=== PATIENT | male | born 1935 | race Caucasian/White ===

== ENCOUNTER 2017-09-18 15:58 | Observation (INO) | payer MEDICARE ==
[~2017-09-18] VITALS: Ht 177.8 cm; Wt 92.7 kg
[~2017-09-18 15:58] MED LIST: ASPI81TA82 PO; GABA300C3 PO; GLIM4TAB PO; GLUCTAB PO; LANTUSP SQ; MOTR200T PO; NOVOLOGP2 SQ; SIMV80TA OR; TRAM50TA PO
[2017-09-18 16:02] VITALS: BP 156/72; PULSE 96; RESP 22; TEMP 98.2; O2SAT 93
--- NOTE | 2017-09-18 17:00 | PD ---
HPI Chief Complaint: Respiratory Distress Time Seen by Provider: 16:59 Travel History International Travel<30 days: No Contact w/Intl Traveler<30days: No Traveled to known affect area: No History of Present Illness HPI 82 YO M with PMH of DM, COPD presents to the ED for evaluation of "a few days" history of worsening shortness of breath and wheezing. Patient endorses chronic nonproductive cough, no worse today. He denies fever, chills, nausea, vomiting, chest pain, palpitations, lower extremity edema. He was seen at the [facility] outpatient clinic yesterday, given a few duo nebs and prescribed azithromycin. He did receive this years flu vaccine. Denies sick contacts. He is not oxygen dependent at home. He does not have a nebulizer at home. He does use a rescue inhaler when necessary. He is followed by Dr. Portillo. [facility] Past Medical History Cancer: No High Cholesterol: Yes Diabetes: Yes Diminished Hearing: No Hepatitis: No Hiatal Hernia: No Thyroid Disease: No Past Surgical History Oral Surgery: Yes (T & A) Other Surgery: Yes (NASAL POLYPS, COLON POLYPS) Social History Alcohol Use: No Tobacco Use: Yes (08/26 PPD) Substance Use: No Allergies-Medications (Allergen,Severity, Reaction): Coded Allergies: Penicillins (Verified Allergy, Unknown, rash, 09/18/17) Reported Meds & Prescriptions Reported Meds & Active Scripts Active Reported Triamcinolone Topical (Triamcinolone Acetonide) 0.1 % Oint 1 Applic TOPICAL BID Ventolin Hfa 18 GM Inh (Albuterol Sulfate) 90 Mcg/Act Aer 2 Puff INH Q8HR Zocor (Simvastatin) 80 Mg Tab 80 Mg PO HS Novolog Inj (Insulin Aspart) 1,000 Unit/10 Ml Vial 15 Units SQ IN THE AFTERNOON inject 15 units daily in the afternoon Novolog Inj (Insulin Aspart) 1,000 Unit/10 Ml Vial 25 Units SQ BID Inject 25 units in the morning and in the evening Metformin ER (Metformin HCl) 500 Mg Jackelin 1,000 Mg PO BID Lantus Inj (Insulin Glargine) 1,000 Unit/10 Ml Vial 65 Units SQ HS Glimepiride 4 Mg Tab 8 Mg PO DAILY Take with breakfast or first main meal Aspirin Adult Low Strength (Aspirin) 81 Mg Tabdr 81 Mg PO DAILY Xanax (Alprazolam) 0.25 Mg Tab 0.25 Mg PO DAILY PRN Zithromax Z-Jose (Azithromycin) 250 Mg Dspk 250 Mg PO DIRECTED 500 MG (2 tabs) day 1, then 1 tab days 2-5. Review of Systems Except as stated in HPI: all other systems reviewed are Neg Physical Exam Narrative GENERAL: Well-nourished, well-developed white male in no acute distress. SKIN: Focused skin assessment warm/dry. HEAD: Normocephalic. EYES: No scleral icterus. No injection or drainage. NECK: Supple, trachea midline. No JVD or lymphadenopathy. CARDIOVASCULAR: Regular rate and rhythm without murmurs, gallops, or rubs. RESPIRATORY: Breath sounds tight with end expiratory wheezing bilaterally. No crackles. No rales. No accessory muscle use. GASTROINTESTINAL: Abdomen soft, non-tender, nondistended. MUSCULOSKELETAL: No cyanosis, or edema. BACK: Nontender without obvious deformity. No CVA tenderness. Data Data Last Documented VS Vital Signs Date Time Temp Pulse Resp B/P (MAP) Pulse Ox O2 Delivery O2 Flow Rate FiO2 09/18/17 19:07 107 18 Room Air 09/18/17 19:06 97/53 (68) 94 09/18/17 16:02 98.2 Orders Orders Complete Blood Count With Diff (09/18/17 16:05) Comprehensive Metabolic Panel (09/18/17 16:05) B-Type Natriuretic Peptide (09/18/17 16:05) Act Partial Throm Time (Ptt) (09/18/17 16:05) Prothrombin Time / Inr (Pt) (09/18/17 16:05) Magnesium (Mg) (09/18/17 16:05) Ckmb (Isoenzyme) Profile (09/18/17 16:05) Troponin I (09/18/17 16:05) Electrocardiogram (09/18/17 16:05) Chest, Pa & Lat (09/18/17 16:05) Iv Access Insert/Monitor (09/18/17 17:19) Ecg Monitoring (09/18/17 17:19) Oximetry (09/18/17 17:19) Methylprednisolone So Succ Inj (Solumedr (09/18/17 17:30) Albuterol-Ipratropium Neb (Duoneb Neb) (09/18/17 17:30) Diet Diabetic (09/18/17 Dinner) Insulin Aspart Inj (Novolog Inj) (09/18/17 19:30) Azithromycin (Zithromax) (09/18/17 19:45) Admit Order (Ed Use Only) (09/18/17 19:36) Labs Laboratory Tests Test 09/18/17 17:40 White Blood Count 5.9 TH/MM3 Red Blood Count 5.10 MIL/MM3 Hemoglobin 14.5 GM/DL Hematocrit 43.8 % Mean Corpuscular Volume 86.0 FL Mean Corpuscular Hemoglobin 28.5 PG Mean Corpuscular Hemoglobin Concent 33.1 % Red Cell Distribution Width 14.3 % Platelet Count 278 TH/MM3 Mean Platelet Volume 8.0 FL Neutrophils (%) (Auto) 43.8 % Lymphocytes (%) (Auto) 33.5 % Monocytes (%) (Auto) 16.6 % Eosinophils (%) (Auto) 5.3 % Basophils (%) (Auto) 0.8 % Neutrophils # (Auto) 2.6 TH/MM3 Lymphocytes # (Auto) 2.0 TH/MM3 Monocytes # (Auto) 1.0 TH/MM3 Eosinophils # (Auto) 0.3 TH/MM3 Basophils # (Auto) 0.0 TH/MM3 CBC Comment DIFF FINAL Differential Comment Prothrombin Time 10.7 SEC Prothromb Time International Ratio 1.1 RATIO Activated Partial Thromboplast Time 27.6 SEC Blood Urea Nitrogen 16 MG/DL Creatinine 0.96 MG/DL Random Glucose 241 MG/DL Total Protein 7.9 GM/DL Albumin 3.6 GM/DL Calcium Level 8.7 MG/DL Magnesium Level 2.0 MG/DL Alkaline Phosphatase 97 U/L Aspartate Amino Transf (AST/SGOT) 14 U/L Alanine Aminotransferase (ALT/SGPT) 20 U/L Total Bilirubin 0.7 MG/DL Sodium Level 138 MEQ/L Potassium Level 4.6 MEQ/L Chloride Level 102 MEQ/L Carbon Dioxide Level 27.6 MEQ/L Anion Gap 8 MEQ/L Estimat Glomerular Filtration Rate 75 ML/MIN Total Creatine Kinase 80 U/L Troponin I LESS THAN 0.02 NG/ML MDM Medical Decision Making Medical Screen Exam Complete: Yes Emergency Medical Condition: Yes Differential Diagnosis COPD exacerbation versus pneumonia versus upper respiratory infection versus other Narrative Course 82 YO M with PMH of DM, COPD presents to the ED for evaluation of "a few days" history of worsening shortness of breath and wheezing. Patient endorses chronic nonproductive cough, no worse today. He denies fever, chills, nausea, vomiting, chest pain, palpitations, lower extremity edema. He was seen at the [facility] outpatient clinic yesterday, given a few duo nebs and prescribed azithromycin. Used a rescue inhaler at home with no improvement of symptoms. Since afebrile, pulse 96, respiratory rate 22, O2 sats 93% on room air on presentation. On exam this is an obese white male in no acute distress. Breath sounds are tight, wheezy, no crackles, no Rales, no accessory muscle use. IV was established. Patient was administered 60 mg Solu-Medrol, DuoNeb 3. CBC: WBC 5.9. Hemoglobin 14.5. INR: 1.1. CMP: BUN 16, creatinine 0.96. Random glucose 241. EKG: Rate 106, sinus tachycardia DE interval 168, QRS 117, QTC 417. Normal axis. Q waves in 2 and aVF. No previous EKG available for comparison. Reviewed by Dr. White Cardiac enzymes negative 1. On recheck patient is lying in bed, tachycardic at a rate of 113. I suspect this is secondary to do nebs. However, O2 sats are 89-91 while at rest. Respiratory rate 25+, positive accessory muscle use. Lung sounds are not improved. Given his continued hypoxia will admit for COPD exacerbation. I discussed this plan with the patient is agreeable. Patient was administered 250 mg azithromycin, nighttime dose of subcutaneous NovoLog and provided with a meal. I spoke with Dr. Verma who agrees to accept the patient to the medicine service. Please see medicine notes for disposition. Susana Hutchison Sep 18, 2017 17:00
[2017-09-18] MEDS ORDERED: VENTAER INH (17:19)
[2017-09-18] MEDS ORDERED: METF500T4 PO (17:19)
[2017-09-18] MEDS ORDERED: NOVOLOGP2 SQ ×2 (17:19)
[2017-09-18] MEDS ORDERED: LANTUS2P SQ (17:19)
[2017-09-18] MEDS ORDERED: ZITHTAB PO (17:19)
[2017-09-18] MEDS ORDERED: ASPI81TA16 PO (17:19)
[2017-09-18] MEDS ORDERED: TRIAM.1%T TOPICAL (17:19)
[2017-09-18] MEDS ORDERED: ZOCO80TA PO (17:19)
[2017-09-18] MEDS ORDERED: ALPR.25 PO (17:19)
[2017-09-18] MEDS ORDERED: GLIM4TAB PO (17:19)
--- NOTE | 2017-09-18 17:21 | RADRPT ---
EXAM DATE/TIME: 09/18/2017 16:22 [place] COMPARISON: No previous studies available for comparison. INDICATIONS : Short of breath. MEDICAL HISTORY : Congestive heart failure. SURGICAL HISTORY : unknown ENCOUNTER: Initial ACUITY: 4 - 6 months PAIN SCORE: 0/10 LOCATION: Bilateral chest FINDINGS: PA and lateral views of the chest demonstrate the lungs to be symmetrically aerated without evidence of mass, infiltrate or effusion. Minimal basilar scarring. The cardiomediastinal contours are unremar kable. Osseous structures are intact. CONCLUSION: 1. Minimal basilar scarring. No effusion. No pneumothorax. Reuben Kulkarni MD on September 18, 2017 at 17:18 Board Certified Radiologist. This report was verified electronically.
[2017-09-18] MEDS ORDERED: methylPREDNISolone SOD SUCC 125 MG/2 ML VIAL IV PUSH ONE (17:30)
[2017-09-18 17:41] VITALS: RESP 20; O2SAT 96
[2017-09-18] MEDS: RESP: ALBUTEROL 2.5 MG/IPRATROPIUM 0.5 MG NEB (SCH) INH ×2 (17:47→17:48)
[2017-09-18 18:27] LABS: AUTOMATED NEUTROPHIL # 2.6 TH/MM3 (1.8-7.7); BASOPHIL % 0.8 % (0.0-2.0); EOSINOPHIL # 0.3 TH/MM3 (0-0.4); EOSINOPHIL % 5.3 % (0.0-4.0); HEMATOCRIT 43.8 % (39.0-51.0); HEMOGLOBIN 14.5 GM/DL (13.0-17.0); LYMPH % 33.5 % (9.0-44.0); MEAN CORPUSCULAR HEMOGLOBIN 28.5 PG (27.0-34.0); MEAN CORPUSCULAR HGB CONC 33.1 % (32.0-36.0); MONO % 16.6 % (0.0-8.0); NEUT % 43.8 % (16.0-70.0); PLATELET COUNT 278 TH/MM3 (150-450); RED CELL DISTRIBUTION WIDTH 14.3 % (11.6-17.2); WHITE BLOOD COUNT 5.9 TH/MM3 (4.0-11.0)
[2017-09-18 18:35] LABS: INTERNATIONAL NORMALIZED RATIO 1.1 RATIO; PROTHROMBIN TIME - PATIENT 10.7 SEC (9.8-11.6)
[2017-09-18 18:41] LABS: ALBUMIN 3.6 GM/DL (3.4-5.0); ALT (GPT) 20 U/L (12-78); AST (GOT) 14 U/L (15-37); BICARBONATE 27.6 MEQ/L (21.0-32.0); BLOOD UREA NITROGEN 16 MG/DL (7-18); CALCIUM 8.7 MG/DL (8.5-10.1); CHLORIDE 102 MEQ/L (98-107); CREATININE 0.96 MG/DL (0.60-1.30); GLOMERULAR FILTRATION RATE 75 ML/MIN (>89); GLUCOSE,RANDOM 241 MG/DL (74-106); SODIUM (NA) 138 MEQ/L (136-145)
[2017-09-18 18:45] LABS: ALKALINE PHOSPHATASE 97 U/L (45-117); TOTAL BILIRUBIN ADULT 0.7 MG/DL (0.2-1.0); TOTAL PROTEIN 7.9 GM/DL (6.4-8.2); TROPONIN I LESS THAN 0.02 NG/ML (0.02-0.05)
[2017-09-18 19:06] VITALS: BP 97/53; PULSE 107; O2SAT 94
[2017-09-18] MEDS ORDERED: INSULIN ASPART 1,000 UNITS/10 ML VIAL SQ ONE ×2 (19:30)
[2017-09-18] MEDS ORDERED: AZITHROMYCIN 250 MG TAB PO ONE (19:45)
[2017-09-18] MEDS ORDERED: ALPRAZolam 0.25 MG TAB PO PRN (20:15)
[2017-09-18] MEDS ORDERED: ACETAMINOPHEN 325 MG TAB PO PRN (20:30)
[2017-09-18] MEDS ORDERED: MAGNESIUM HYDROXIDE SUSP 30 ML CUP PO PRN (20:30)
[2017-09-18] MEDS ORDERED: ONDANSETRON HCL 4 MG/2 ML VIAL IVP PRN (20:30)
[2017-09-18] MEDS ORDERED: SENNOSIDES 8.6 MG TAB PO PRN (20:30)
[2017-09-18] MEDS ORDERED: NALOXONE HCL 0.4 MG/ML AMP IV PUSH PRN (20:30)
[2017-09-18] MEDS ORDERED: SODIUM CHLORIDE 0.9% FLUSH 10 ML FLUSH IV FLUSH PRN (20:30)
[2017-09-18] MEDS ORDERED: LACTULOSE SYRUP 20 GM/30 ML CUP PO PRN (20:30)
[2017-09-18] MEDS ORDERED: BISACODYL 10 MG SUPP RECTAL PRN (20:30)
--- NOTE | 2017-09-18 20:42 | HHI.HP ---
HPI Service [facility] Hospitalists Primary Care Physician Jose Portillo MD Admission Diagnosis COPD exacerbation Chief Complaint: increasing shortness of breath today Travel History International Travel<30 Days: No Contact w/Intl Traveler <30 Da: No Traveled to Known Affected Are: No History of Present Illness 82 YO M with PMH of DM, COPD presents to the ED for evaluation of "a few days" history of worsening shortness of breath and wheezing. Patient endorses chronic nonproductive cough, no worse today. He denies fever, chills, nausea, vomiting, chest pain, palpitations, lower extremity edema. He was seen at the [facility] outpatient clinic yesterday, given a few duo nebs and prescribed azithromycin. He did receive this years flu vaccine. Denies sick contacts. He is not oxygen dependent at home. He does not have a nebulizer at home. He does use a rescue inhaler when necessary . Despite several treatments in er continued wheezing and was hypoxic will admit for continued treatment. Review of Systems Respiratory: COMPLAINS OF: Cough, Shortness of breath Past Family Social History Past Medical History dm ,hyperlipidemia Past Surgical History t and a nasal surgery Reported Medications Triamcinolone Topical (Triamcinolone Acetonide) 0.1 % Oint 1 Applic TOPICAL BID Ventolin Hfa 18 GM Inh (Albuterol Sulfate) 90 Mcg/Act Aer 2 Puff INH Q8HR Zocor (Simvastatin) 80 Mg Tab 80 Mg PO HS Novolog Inj (Insulin Aspart) 1,000 Unit/10 Ml Vial 15 Units SQ IN THE AFTERNOON inject 15 units daily in the afternoon Novolog Inj (Insulin Aspart) 1,000 Unit/10 Ml Vial 25 Units SQ BID Inject 25 units in the morning and in the evening Metformin ER (Metformin HCl) 500 Mg Jackelin 1,000 Mg PO BID Lantus Inj (Insulin Glargine) 1,000 Unit/10 Ml Vial 65 Units SQ HS Glimepiride 4 Mg Tab 8 Mg PO DAILY Take with breakfast or first main meal Aspirin Adult Low Strength (Aspirin) 81 Mg Tabdr 81 Mg PO DAILY Xanax (Alprazolam) 0.25 Mg Tab 0.25 Mg PO DAILY PRN Zithromax Z-Jose (Azithromycin) 250 Mg Dspk 250 Mg PO DIRECTED 500 MG (2 tabs) day 1, then 1 tab days 2-5. Allergies: Coded Allergies: Penicillins (Verified Allergy, Unknown, rash, 09/18/17) Social History NS,ND Physical Exam Vital Signs Vital Signs Date Time Temp Pulse Resp B/P (MAP) Pulse Ox O2 Delivery O2 Flow Rate FiO2 09/18/17 19:07 107 18 Room Air 09/18/17 19:06 107 97/53 (68) 94 Room Air 09/18/17 17:41 20 96 Room Air 09/18/17 17:05 88 22 95 Room Air 09/18/17 16:02 98.2 96 22 156/72 (100) 93 Physical Exam GENERAL: This is a well-nourished, well-developed patient, in no apparent distress. SKIN: No rashes, ecchymoses or lesions. Cool and dry. HEAD: Atraumatic. Normocephalic. No temporal or scalp tenderness. EYES: Pupils equal round and reactive. Extraocular motions intact. No scleral icterus. No injection or drainage. ENT: Nose without bleeding, purulent drainage or septal hematoma. Throat without erythema, tonsillar hypertrophy or exudate. Uvula midline. Airway patent. NECK: Trachea midline. No JVD or lymphadenopathy. Supple, nontender, no meningeal signs. CARDIOVASCULAR: Regular rate and rhythm without murmurs, gallops, or rubs. RESPIRATORY: Decrease breath sounds with bilateral rhonchi GASTROINTESTINAL: Abdomen soft, non-tender, nondistended. No hepato-splenomegaly , or palpable masses. No guarding. MUSCULOSKELETAL: Extremities without clubbing, cyanosis, or edema. No joint tenderness, effusion, or edema noted. No calf tenderness. Negative Homans sign bilaterally. NEUROLOGICAL: Awake and alert. Cranial nerves II through XII intact. Motor and sensory grossly within normal limits. Five out of 5 muscle strength in all muscle groups. Normal speech. Laboratory Laboratory Tests Test 09/18/17 17:40 White Blood Count 5.9 Red Blood Count 5.10 Hemoglobin 14.5 Hematocrit 43.8 Mean Corpuscular Volume 86.0 Mean Corpuscular Hemoglobin 28.5 Mean Corpuscular Hemoglobin Concent 33.1 Red Cell Distribution Width 14.3 Platelet Count 278 Mean Platelet Volume 8.0 Neutrophils (%) (Auto) 43.8 Lymphocytes (%) (Auto) 33.5 Monocytes (%) (Auto) 16.6 Eosinophils (%) (Auto) 5.3 Basophils (%) (Auto) 0.8 Neutrophils # (Auto) 2.6 Lymphocytes # (Auto) 2.0 Monocytes # (Auto) 1.0 Eosinophils # (Auto) 0.3 Basophils # (Auto) 0.0 CBC Comment DIFF FINAL Differential Comment Prothrombin Time 10.7 Prothromb Time International Ratio 1.1 Activated Partial Thromboplast Time 27.6 Blood Urea Nitrogen 16 Creatinine 0.96 Random Glucose 241 Total Protein 7.9 Albumin 3.6 Calcium Level 8.7 Magnesium Level 2.0 Alkaline Phosphatase 97 Aspartate Amino Transf (AST/SGOT) 14 Alanine Aminotransferase (ALT/SGPT) 20 Total Bilirubin 0.7 Sodium Level 138 Potassium Level 4.6 Chloride Level 102 Carbon Dioxide Level 27.6 Anion Gap 8 Estimat Glomerular Filtration Rate 75 Total Creatine Kinase 80 Troponin I LESS THAN 0.02 Result Diagram: 09/18/170 09/18/17 1740 Imaging Last 24 hours Impressions Chest X-Ray 09/18/17 1605 Signed Impressions: Service Date/Time: Monday, September 18, 2017 16:22 - CONCLUSION: 1. Minimal basilar scarring. No effusion. No pneumothorax. Reuben Kulkarni MD Course in er received solumedrol nebulizer Caprini VTE Risk Assessment Caprini VTE Risk Assessment: Mod/High Risk (score >= 2) Caprini Risk Assessment Model Point Value = 1 Point Value = 2 Point Value = 3 Point Value = 5 Age 41-60 Minor surgery BMI > 25 kg/m2 Swollen legs Varicose veins or History of unexplained or recurrent spontaneous Oral contraceptives or hormone replacement Sepsis (< 1 month) Serious lung disease, including pneumonia (< 1 month) Abnormal pulmonary function Acute myocardial infarction Congestive heart failure (< 1 month) History of inflammatory bowel disease Medical patient at bed rest Age 61-74 Arthroscopic surgery Major open surgery (> 45 min) Laparoscopic surgery (> 45 min) Malignancy Confined to bed (> 72 hours) Immobilizing plaster cast Central venous access Age >= 75 History of VTE Family history of VTE Factor V Leiden Prothrombin 68302P Lupus anticoagulant Anticardiolipin antibodies Elevated serum homocysteine Heparin-induced thrombocytopenia Other congenital or acquired thrombophilia Stroke (< 1 month) Elective arthroplasty Hip, pelvis, or leg fracture Acute spinal cord injury (< 1 month) Prophylaxis Regimen Total Risk Factor Score Risk Level Prophylaxis Regimen 0-1 Low Early ambulation 2 Moderate Order ONE of the following: *Sequential Compression Device (SCD) *Heparin 5000 units SQ BID 3-4 Higher Order ONE of the following medications: *Heparin 5000 units SQ TID *Enoxaparin/Lovenox 40 mg SQ daily (WT < 150 kg, CrCl > 30 mL/min) *Enoxaparin/Lovenox 30 mg SQ daily (WT < 150 kg, CrCl > 10-29 mL/min) *Enoxaparin/Lovenox 30 mg SQ BID (WT < 150 kg, CrCl > 30 mL/min) AND/OR *Sequential Compression Device (SCD) 5 or more Highest Order ONE of the following medications: *Heparin 5000 units SQ TID (Preferred with Epidurals) *Enoxaparin/Lovenox 40 mg SQ daily (WT < 150 kg, CrCl > 30 mL/min) *Enoxaparin/Lovenox 30 mg SQ daily (WT < 150 kg, CrCl > 10-29 mL/min) *Enoxaparin/Lovenox 30 mg SQ BID (WT < 150 kg, CrCl > 30 mL/min) AND *Sequential Compression Device (SCD) Assessment and Plan Problem List: (1) COPD exacerbation ICD Codes: J44.1 - Chronic obstructive pulmonary disease with (acute) exacerbation Plan: duonebulizer solumedrol continue zithromax po (2) Hypoxia ICD Codes: R09.02 - Hypoxemia Status: Acute Plan: continue oxygen may need oxygen walk test to see if qualifies (3) Diabetes ICD Codes: E11.9 - Type 2 diabetes mellitus without complications Status: Chronic Plan: on insulin and po medications accucheck patient takes insulin bid and hs will continue Assessment and Plan further plan as case develops Code Status full Discussed Condition With patient Jose Portillo MD Sep 18, 2017 20:42
[2017-09-18] MEDS ORDERED: BENZONATATE 100 MG CAP PO PRN (21:00)
[2017-09-18] MEDS: INSULIN ASPART 1,000 UNITS/10 ML VIAL SQ SCH (21:34)
[2017-09-18] MEDS: INSULIN DETEMIR 100 UNITS/ML VIAL SQ SCH (21:35)
[2017-09-18] MEDS: SODIUM CHLORIDE 0.9% FLUSH 10 ML FLUSH IV FLUSH SCH (21:35)
[2017-09-18] MEDS: PRAVASTATIN SOD 80 MG TAB PO SCH (21:35)
[2017-09-18] MEDS: DOCUSATE SODIUM 50 MG/SENNA 8.6 MG TAB PO SCH (21:35)
[2017-09-18] MEDS: methylPREDNISolone SOD SUCC 125 MG/2 ML VIAL IV PUSH SCH (21:36)
[2017-09-18] MEDS: metFORMIN HCL 500 MG TAB PO SCH (21:36)
[2017-09-18] MEDS ORDERED: ALBUTEROL SULFATE 90 MCG/ACT HFA 8 GM INHALER INH PRN (22:00)
--- NOTE | 2017-09-18 22:22 | EKG ---
Date Performed: 09/18/2017 Time Performed: 19:40:30 PTAGE: 82 years EKG: SINUS TACHYCARDIA PROBABLE INFERIOR MYOCARDIAL INFARCTION PROBABLE ANTEROLATERAL MYOCARDIAL INFARCTION ABNORMAL ECG PREVIOUS TRACING : 11/23/1998 11.41 DOCTOR: Ro Parmar Interpretating Date/Time 09/18/2017 22:21:49
[2017-09-18] MEDS ORDERED: RESP: ALBUTEROL 2.5 MG/IPRATROPIUM 0.5 MG NEB (SCH) ONE (22:29)
[2017-09-18 22:30] VITALS: O2SAT 91
[2017-09-19] VITALS (8 sets, daily range): BP systolic 119–139; BP diastolic 58–62; PULSE 89–105; RESP 12–24; TEMP 97.6–98.2; O2SAT 91–95
[2017-09-19 06:24] LABS: BICARBONATE 23.1 MEQ/L (21.0-32.0); CALCIUM 8.6 MG/DL (8.5-10.1); CREATININE 1.21 MG/DL (0.60-1.30)
[2017-09-19] MEDS: RESP: ALBUTEROL 2.5 MG/IPRATROPIUM 0.5 MG NEB (SCH) NEB ×3 (07:24→20:31)
[2017-09-19] MEDS: SODIUM CHLORIDE 0.9% FLUSH 10 ML FLUSH IV FLUSH SCH ×2 (08:17→21:13)
[2017-09-19] MEDS: AZITHROMYCIN 250 MG TAB PO SCH (08:18)
[2017-09-19] MEDS: ASPIRIN EC 81 MG TABEC PO SCH (08:18)
[2017-09-19] MEDS: metFORMIN HCL 500 MG TAB PO SCH ×2 (08:18→18:27)
[2017-09-19] MEDS: DOCUSATE SODIUM 50 MG/SENNA 8.6 MG TAB PO SCH ×2 (08:18→21:14)
[2017-09-19] MEDS: methylPREDNISolone SOD SUCC 125 MG/2 ML VIAL IV PUSH SCH ×2 (08:18→21:14)
[2017-09-19] MEDS: INSULIN ASPART 1,000 UNITS/10 ML VIAL SQ SCH ×2 (09:26→21:16)
[2017-09-19] MEDS: GLIMEPIRIDE 4 MG TAB PO SCH (09:26)
[2017-09-19] MEDS ORDERED: ALPRAZolam 0.25 MG TAB PO PRN (14:45)
[2017-09-19] MEDS ORDERED: INSULIN ASPART 1,000 UNITS/10 ML VIAL SQ ONE (18:00)
--- NOTE | 2017-09-19 18:00 | HHI.PR ---
Objective Vitals Vital Signs Date Time Temp Pulse Resp B/P (MAP) Pulse Ox O2 Delivery O2 Flow Rate FiO2 09/19/17 15:09 98.0 99 12 129/58 (81) 91 09/19/17 11:30 97.6 102 20 130/60 (83) 93 09/19/17 11:02 09/19/17 10:47 104 24 139/61 (87) 95 Nasal Cannula 2.00 09/19/17 07:44 105 22 124/60 (81) 93 Nasal Cannula 2.00 09/19/17 07:30 95 Nasal Cannula 1.00 09/19/17 02:31 98 21 119/58 (78) 91 Room Air 09/18/17 22:30 91 21 09/18/17 19:07 107 18 Room Air 09/18/17 19:06 107 97/53 (68) 94 Room Air Result Diagram: 09/18/17 1740 09/19/17 0524 Imaging Last 24 hours Impressions Chest X-Ray 09/18/17 1605 Signed Impressions: Service Date/Time: Monday, September 18, 2017 16:22 - CONCLUSION: 1. Minimal basilar scarring. No effusion. No pneumothorax. Reuben Kulkarni MD A/P Problem List: (1) COPD exacerbation ICD Codes: J44.1 - Chronic obstructive pulmonary disease with (acute) exacerbation Plan: duonebulizer solumedrol continue zithromax po (2) Hypoxia ICD Codes: R09.02 - Hypoxemia Status: Acute Plan: continue oxygen may need oxygen walk test to see if qualifies (3) Diabetes ICD Codes: E11.9 - Type 2 diabetes mellitus without complications Status: Chronic Plan: on insulin and po medications accucheck patient takes insulin bid and hs will continue Portillo Aldridge DO Sep 19, 2017 18:00
[2017-09-19] MEDS: PRAVASTATIN SOD 80 MG TAB PO SCH (21:15)
[2017-09-19] MEDS: INSULIN ASPART SUPPLEMENTAL SCALE SQ SCH (21:16)
[2017-09-19] MEDS: INSULIN DETEMIR 100 UNITS/ML VIAL SQ SCH (21:16)
[2017-09-20] VITALS (8 sets, daily range): BP systolic 115–127; BP diastolic 58–60; PULSE 80–97; RESP 18–19; TEMP 96.8–97.8; O2SAT 93–95
[2017-09-20] MEDS: INSULIN ASPART SUPPLEMENTAL SCALE SQ SCH ×2 (08:00→12:00)
[2017-09-20] MEDS ORDERED: predniSONE 20 MG TAB PO SCH ×2 (08:00→09:00)
[2017-09-20] MEDS: RESP: ALBUTEROL 2.5 MG/IPRATROPIUM 0.5 MG NEB (SCH) NEB ×2 (08:00→13:24)
[2017-09-20] MEDS: AZITHROMYCIN 250 MG TAB PO SCH (09:24)
[2017-09-20] MEDS: SODIUM CHLORIDE 0.9% FLUSH 10 ML FLUSH IV FLUSH SCH (09:24)
[2017-09-20] MEDS: DOCUSATE SODIUM 50 MG/SENNA 8.6 MG TAB PO SCH (09:24)
[2017-09-20] MEDS: GLIMEPIRIDE 4 MG TAB PO SCH (09:24)
[2017-09-20] MEDS: ASPIRIN EC 81 MG TABEC PO SCH (09:24)
[2017-09-20] MEDS: INSULIN ASPART 1,000 UNITS/10 ML VIAL SQ SCH (09:25)
[2017-09-20] MEDS: metFORMIN HCL 500 MG TAB PO SCH (09:25)
[2017-09-20] MEDS ORDERED: PRED10 PO (14:56)
[2017-09-20] MEDS ORDERED: NEBUKIT5 (16:19)
[2017-09-20] MEDS ORDERED: IPRA0.02 NEB (16:19)
[2017-09-20] MEDS ORDERED: ALBU0.08 NEB (16:19)
[2017-09-20] MEDS ORDERED: NEBULIZER1 MI1 (16:19)
[2017-09-20] MEDS ORDERED: SYMB80AE INH (16:21)
[2017-09-20] MEDS ORDERED: SYMB160A INH (16:22)
--- NOTE | 2017-09-20 16:27 | HHI.FF ---
Face to Face Verification Diagnosis: (1) Diabetes (2) Hypoxia (3) COPD exacerbation Home Health Nursing Order: Medical education Signs/symptoms of disease process Medication education-adverse effect Nursing assessment with vital signs Instructions: Please also assist with home nebulizer I have seen patient Arturo Armendariz on 09/20/17. My clinical findings support the need for the requested home health care services because: Med compliance is questionable Need for psychosocial assistance I certify that my clinical findings support that this patient is homebound because: Unsafe to leave home unassisted Sruthi Wall Sep 20, 2017 16:26 Portillo Aldridge DO Sep 20, 2017 16:28
--- NOTE | 2017-09-20 16:28 | HHI.DCPOC ---
Discharge Care Plan Diagnosis: (1) Diabetes (2) Hypoxia (3) COPD exacerbation Goals to Promote Your Health * To prevent worsening of your condition and complications * To maintain your health at the optimal level Directions to Meet Your Goals Take your medications as prescribed Follow your dietary instruction Follow activity as directed Keep your appointments as scheduled Take your immunizations and boosters as scheduled If your symptoms worsen call your PCP, if no PCP go to Urgent Care Center or Emergency Room Smoking is Dangerous to Your Health. Avoid second hand smoke Call the 24-hour hour crisis hotline for domestic abuse at Sruthi Wall Sep 20, 2017 16:28 Portillo Aldridge DO Sep 25, 2017 13:40
--- NOTE | 2017-09-20 16:33 | HHI.PR ---
Subjective Remarks Patient reports feeling much better Offers no complaints at this time patient asking to go home Objective Vitals Vital Signs Date Time Temp Pulse Resp B/P (MAP) Pulse Ox O2 Delivery O2 Flow Rate FiO2 09/20/17 16:08 97.7 96 18 115/59 (77) 94 09/20/17 15:04 97 09/20/17 13:02 97.0 87 18 127/60 (82) 94 09/20/17 11:09 95 09/20/17 09:12 87 09/20/17 08:14 96.8 80 19 119/58 (78) 93 09/20/17 03:32 97.8 86 19 126/60 (82) 95 09/20/17 00:00 87 09/19/17 23:57 98.2 89 18 133/61 (85) 95 09/19/17 19:59 97 18 134/62 (86) 93 Result Diagram: 09/18/17 1740 09/19/17 0524 Other Results Laboratory Tests Test 09/18/17 00:00 09/18/17 17:40 09/19/17 05:24 B-Type Natriuretic Peptide 8 PG/ML White Blood Count 5.9 TH/MM3 Red Blood Count 5.10 MIL/MM3 Hemoglobin 14.5 GM/DL Hematocrit 43.8 % Mean Corpuscular Volume 86.0 FL Mean Corpuscular Hemoglobin 28.5 PG Mean Corpuscular Hemoglobin Concent 33.1 % Red Cell Distribution Width 14.3 % Platelet Count 278 TH/MM3 Mean Platelet Volume 8.0 FL Neutrophils (%) (Auto) 43.8 % Lymphocytes (%) (Auto) 33.5 % Monocytes (%) (Auto) 16.6 % Eosinophils (%) (Auto) 5.3 % Basophils (%) (Auto) 0.8 % Neutrophils # (Auto) 2.6 TH/MM3 Lymphocytes # (Auto) 2.0 TH/MM3 Monocytes # (Auto) 1.0 TH/MM3 Eosinophils # (Auto) 0.3 TH/MM3 Basophils # (Auto) 0.0 TH/MM3 CBC Comment DIFF FINAL Differential Comment Prothrombin Time 10.7 SEC Prothromb Time International Ratio 1.1 RATIO Activated Partial Thromboplast Time 27.6 SEC Blood Urea Nitrogen 16 MG/DL 23 MG/DL Creatinine 0.96 MG/DL 1.21 MG/DL Random Glucose 241 MG/DL 315 MG/DL Total Protein 7.9 GM/DL Albumin 3.6 GM/DL Calcium Level 8.7 MG/DL 8.6 MG/DL Magnesium Level 2.0 MG/DL Alkaline Phosphatase 97 U/L Aspartate Amino Transf (AST/SGOT) 14 U/L Alanine Aminotransferase (ALT/SGPT) 20 U/L Total Bilirubin 0.7 MG/DL Sodium Level 138 MEQ/L 141 MEQ/L Potassium Level 4.6 MEQ/L 4.6 MEQ/L Chloride Level 102 MEQ/L 108 MEQ/L Carbon Dioxide Level 27.6 MEQ/L 23.1 MEQ/L Anion Gap 8 MEQ/L 10 MEQ/L Estimat Glomerular Filtration Rate 75 ML/MIN 58 ML/MIN Total Creatine Kinase 80 U/L Troponin I LESS THAN 0.02 NG/ML Imaging Last 24 hours Impressions Chest X-Ray 09/18/17 1605 Signed Impressions: Service Date/Time: Monday, September 18, 2017 16:22 - CONCLUSION: 1. Minimal basilar scarring. No effusion. No pneumothorax. Reuben Kulkarni MD Objective Remarks GENERAL: This is a well-nourished, well-developed patient, in no apparent distress. CARDIOVASCULAR: Regular rate and rhythm RESPIRATORY: Clear to auscultation. Breath sounds equal bilaterally. GASTROINTESTINAL: Abdomen soft, non-tender, nondistended. Normal active bowel sounds MUSCULOSKELETAL: Extremities without clubbing, cyanosis, or edema. NEURO: Awake and Alert. Moves all ext x4 A/P Problem List: (1) COPD exacerbation ICD Codes: J44.1 - Chronic obstructive pulmonary disease with (acute) exacerbation Plan: duonebs Solumol continue Zithromax po Patient transitioned to PO steroids Breathing well today no longer requiring oxygen DC patient home in stable condition on heart healthy diet with prescriptions for nebulizers, Symbicort and prednisone. Patient to follow up with PCP in 1 week. (2) Hypoxia ICD Codes: R09.02 - Hypoxemia Status: Acute Plan: No longer requiring oxygen (3) Diabetes ICD Codes: E11.9 - Type 2 diabetes mellitus without complications Status: Chronic Plan: on insulin and po medications accucheck patient takes insulin bid and hs will continue Assessment and Plan Patient examined. Assessment and plan formulated with Sruthi Wall PA-C. I agree with the above. Sruthi Wall Sep 20, 2017 16:33 Portillo Aldridge DO Sep 25, 2017 13:40
== END 2017-09-20 18:31 | disposition home or self-care (01) ==
LOC: NED 15:58 → NEDA 19:42 → NEDH 09-19 00:52 → NEPFCDU 09-19 11:20
PROVIDERS: ADMIT Hospitalist; ATTEND Hospitalist
DX: J44.1 Chronic obstructive pulmonary disease with (acute) exacerbation (principal); R09.02 Hypoxemia; E11.9 Type 2 diabetes mellitus without complications; R00.0 Tachycardia, unspecified; R94.31 Abnormal electrocardiogram [ECG] [EKG]; E78.00 Pure hypercholesterolemia, unspecified; E66.9 Obesity, unspecified; Z68.29 Body mass index [BMI] 29.0-29.9, adult; F17.200 Nicotine dependence, unspecified, uncomplicated; Z79.899 Other long term (current) drug therapy; Z79.82 Long term (current) use of aspirin; Z79.4 Long term (current) use of insulin
CPT/HCPCS: 71046; 80048; 80053; 82550; 82948; 83735; 83880; 84484; 85025; 85610; 85730; 93005; 94618; 94640; 94664; 96372; 96374; 96376; 97162; 99285; G0378; G8987; G8988; J1815; J2930; J7512